=== PATIENT | male | born 1980 | race Caucasian/White ===

== ENCOUNTER → 2016-05-03 | Day surgery (SDC) | payer OTHER ==
[~2016-05-03] MED LIST: CYMBALTA30 MG PO; FLEXERIL PO; KEFLEX PO; KETOPROFEN PO; LIPITOR40 MG PO; LISINOPRIL20 MG PO; LORTAB 7.5-5001 TAB PO; LYRICA50 MG PO; MOBIC15 MG PO; NO MEDICATIONS; NORVASC10 MG PO; PHENERGAN25 MG PO; VICODIN 5/500 T1 TAB PO; VISTARIL PO
--- NOTE | ~2016-05-03 | OR ---
Unit #: [id number] #: [id number] Patient: MANDY ROSALES [id number] [address] [address] [id number] MR#: [id number] NAME: MANDY ROSALES ROOM: Date of Procedure: 05/03/2016 Admission Date: 05/03/2016 Surgeon: Harpreet Mccloud M.D. : 1980 Attending Physician: Harpreet Mccloud M.D. Primary Care Physician: Lulu Hayes M.D. OPERATIVE REPORT SERVICES PROVIDED 1. Therapeutic cervical epidural steroid injection. 2. Fluoroscopy of the cervical spine. 3. IV sedation to facilitate above. PREOPERATIVE DIAGNOSES 1. Herniated disk, C5-6 with right upper extremity radiculopathy. 2. Hypertension. 3. History of pseudoseizures. POSTOPERATIVE DIAGNOSES 1. Herniated disk, C5-6 with right upper extremity radiculopathy. 2. Hypertension. 3. History of pseudoseizures. PROCEDURE PERFORMED Caudal epidural steroid injection using fluoroscopy. FOLLOW-UP/REVIEW OF SYSTEMS/PHYSICAL EXAM Mr. Ward is here for a cervical epidural steroid injection to address the right upper extremity radiculopathy greater than the left side. He has no medical contraindications to the procedure that was performed as follows with his consent. INDICATIONS/COMMENTS AND CONSENTS/STATEMENT OF MEDICAL NECESSITY The patient's current medications, allergies and vital signs are documented in the nursing assessment. The risks and benefits of the intervention were discussed with the patient in detail including but not limited to infection, bleeding, meningitis, steroid induced side-effects, nerve damage, paralysis, spinal headaches, neuritis, persistent or worsening pain. The patient wishes to proceed. A separate pain assessment is also in the chart. I have reviewed all of this and have reviewed this with the patient. A current History and Physical is also attached. DESCRIPTION OF PROCEDURE 1. Monitoring and positioning: After appropriate discussions it was decided to perform the procedure under local anesthesia with supplemental intravenous sedation. Vital signs were monitored in pre, intra and post-procedure phase. Monitoring included EKG, non-invasive BP, pulse oximetry, and temperature. These are documented and were stable. Appropriate supports and restraints were used. Unit #: [id number] #: [id number] Patient: MANDY ROSALES 2. Sedation: A total of 2 mg of Versed and 100 mcg of fentanyl was administered. 3. Caudal epidural injection/fluoroscopy: The patient was placed in sitting position. Positional supports were used. Fluoroscopy of the lumbar spine was performed using a caudal angle. Sterile prep and drape with carried out with ChloraPrep. The approximate location of the sacral hiatus was determined by palpating the sacral cornu. Local anesthesia was with infiltrated with 3 milliliters of preservative-free 1% Lidocaine. Once anesthesia was established, a 22 gauge Tuohy epidural needle was inserted into the C7-T1, epidurally, into the caudal spinal canal, using loss of resistance to saline technique, and with fluoroscopic guidance. Needle placement tested negative for subarachnoid and intravascular placement. An intra-operative epidurogram was now performed. Intra-operative epidurogram: 1 milliliter of Isovue-M300 was injected through the epidural needle under continuous fluoroscopy. The dye was seen to spread to C6 in the cephalad direction and to the T1 in the caudal direction. The spread of the dye was uniform and bilateral. 1 milliliter of preservative-free normal saline was used to irrigate the dye off the epidural space. There was no intravascular or intrathecal spread of contrast. A caudal epidural steroid injection was now performed using a total of 3 mL of solution containing 0.7% PF Lidocaine in 10 mL followed by 80 mg of Depo-Medrol in 2 mL. Fluoroscopic imaging confirmed spread of medication. The needle was then removed intact. The skin was washed off. Prep solution and dressings were applied at the injection site. The patient tolerated the procedure well. The patient was then observed in the recovery area for 30 minutes. RESULTS The patient had a consistent block with the dose of local anesthetic used. Pain relief was satisfactory. There were no complications or side effects. DISCHARGE CONDITION 1. Patient was discharged in satisfactory condition accompanied by a family member. 2. Post-procedure instructions were given. PLAN The patient was advised to return to the clinic in 6 weeks for re-assessment and possible repeat intervention. I thank the patient's referring physician for the opportunity to participate in the care of this patient. Please do not hesitate to call for any questions regarding this patient's pain management. Dictated by... Sumit Emmanuel/carmen TD: 05/04/2016 03:25 JOB #: [id number] Unit #: [id number] #: [id number] Patient: MANDY ROSALES OPERATIVE REPORT Page 1 of 1 X Harpreet Mccloud MD PROCEDURE OPERATIVE NOTE
== END | disposition home or self-care (01) ==
LOC: CCSC 07:49
DX: M50.122 Cervical disc disorder at C5-C6 level with radiculopathy (principal); I10 Essential (primary) hypertension; F17.200 Nicotine dependence, unspecified, uncomplicated; Z88.0 Allergy status to penicillin; Z88.8 Allergy status to other drugs, medicaments and biological substances
CPT/HCPCS: J1040; J2250; J3010